=== PATIENT | female | born 1955 | race Caucasian/White ===

== ENCOUNTER 2020-02-11 14:27 | Inpatient (IN) | payer BC ==
[~2020-02-11] VITALS: Ht 167.6 cm; Wt 78.5 kg
[~2020-02-11 14:27] MED LIST: ATOR40TA52 PO
[2020-02-11] MEDS ORDERED: METHYLENE BLUE 0.5% 5MG/ML 10ml AMP IV ONE (14:37)
[2020-02-11] MEDS: BUPIVACAINE 0.25% INJ 50ML VIAL ONE ×2 (14:37→18:55)
[2020-02-11] MEDS: LIDOCAINE W/ EPINEPHRINE 1% 20ML VIAL ONE ×2 (14:37→18:55)
[2020-02-11] MEDS ORDERED: fentaNYL CITRATE 100 MCG/2 ML VL ONE ×2 (15:20→17:19)
[2020-02-11] MEDS ORDERED: HYDROmorphone HCL 2 MG/ML VL ONE (15:20)
[2020-02-11] MEDS ORDERED: ONDANSETRON HCL 4 MG/2 ML VIAL ONE (15:21)
[2020-02-11] MEDS ORDERED: ROCURONIUM 10MG/ML 10ML VIAL IV ONE (15:21)
[2020-02-11] MEDS ORDERED: KETOROLAC TROMETH 30 MG/ML 1ML VIAL ONE (15:21)
[2020-02-11] MEDS ORDERED: LIDOCAINE 2% (LOCAL ANESTH.) PF 5ml SDV ONE (15:21)
[2020-02-11] MEDS ORDERED: MIDAZOLAM HCL 1MG/1ML-2 ML VIAL ONE (15:21)
[2020-02-11] MEDS ORDERED: PROPOFOL 10 MG/ML 20 ML IV ONE (15:21)
[2020-02-11] MEDS ORDERED: GLYCOPYRROLATE 0.2 MG/ML 1ML VIAL ONE (15:21)
[2020-02-11] MEDS ORDERED: DexAMETHasone SOD PHOS 10MG/1ML VIAL INJ ONE (15:21)
[2020-02-11] MEDS ORDERED: ceFAZolin 1GM/50ML 100 ML IV ONE (15:43)
[2020-02-11] MEDS: SODIUM CHLORIDE 0.9% 1,000 ML IV SCH ×2 (16:25→23:37)
[2020-02-11] MEDS ORDERED: ceFAZolin 1GM/50ML 50 ML IV ONE (16:30)
[2020-02-11] MEDS ORDERED: MORPHINE SULF INJ 2 MG/ML SYRINGE 1ML IV PRN (16:30)
[2020-02-11] MEDS ORDERED: ACETAMINOPHEN 500 MG TAB PO PRN (16:30)
[2020-02-11] MEDS ORDERED: HYDROcodone-ACET 10/325MG TAB PO PRN (16:30)
[2020-02-11] MEDS ORDERED: NITROGLYCERIN 0.4 MG SL TAB SL PRN (16:30)
[2020-02-11] MEDS ORDERED: MORPHINE SULFATE 4 MG/ML SYR/VIAL IV PRN (16:30)
[2020-02-11] MEDS ORDERED: HYDROmorphone HCL 2 MG/ML VL IV PRN (19:15)
[2020-02-11] MEDS ORDERED: ONDANSETRON HCL 4 MG/2 ML VIAL IV PRN (19:15)
--- NOTE | 2020-02-11 20:30 | NUR ---
Telemetry admit from ER MARCELLUS FLORES admitted to Telemetry unit after SBAR received. Patient oriented to primary RN, unit, room, bed, and unit policies regarding patient care and visiting hours. Patient now on continuous telemetry monitoring, tele box #4 and telemetry reading on arrival to unit is Normal sinus rhythm. Patient weighed by bedscale and encouraged to call if they need something. All questions and concerns addressed, patient verbalized understanding. Bed locked in lowest position and bed rails up x2. Call light within reach.
[2020-02-11 21:44] VITALS: BP 106/66
[2020-02-11] MEDS: ONDANSETRON HCL 4 MG/2 ML VIAL IV PRN (22:45)
[2020-02-12 05:07] VITALS: BP 104/65
[2020-02-12 05:53] LABS: Basophils # (auto) 0 10 ^3/uL (0-0.2); Basophils % (auto) 0.1 % (0.0-2.0); Eosinophils # (auto) 0 10 ^3/uL (0-0.8); Hematocrit 36.5 % (36.0-46.0); Hemoglobin 12.4 g/dL (12.2-16.2); Lymphocytes # (auto) 0.6 10 ^3/uL (0.4-5.4); Lymphocytes % (auto) 5.7 % (10.0-50.0); Mean Corpuscular Volume 94.3 fL (80.0-100.0); Monocytes # (auto) 0.3 10 ^3/uL (0-1.3); Monocytes % (auto) 2.5 % (0.0-12.0); Neutrophils # (auto) 10.2 10 ^3/uL (1.6-8.6); Neutrophils % (auto) 91.7 % (37.0-80.0); Platelet Count (auto) 194 10^3/uL (140-450); Red Blood Cells 3.86 10^6/uL (4.0-5.20); Red Cell Distribution Width 12.8 % (11.8-14.3); White Blood Cell 11.1 10^3/uL (4.4-10.8)
[2020-02-12] MEDS: ONDANSETRON HCL 4 MG/2 ML VIAL IV PRN (07:05)
--- NOTE | 2020-02-12 07:15 | NUR ---
Dr. Coker at bedside
[2020-02-12 08:00] VITALS: BP 113/78
[2020-02-12] MEDS: SODIUM CHLORIDE 0.9% 1,000 ML IV SCH (09:13)
[2020-02-12 12:00] VITALS: BP 105/56
--- NOTE | 2020-02-12 12:44 | NUR ---
Barrera D/C Removed patient barrera catheter. Patient tolerated well with no complaints. Educated patient on to let me know when she has her first void after the removal of the catheter. She verbalized understanding. Emptied 400 ml of clear yellow urine from catheter bag.
[2020-02-12 13:59] VITALS: BP 105/56
--- NOTE | 2020-02-12 14:40 | NUR ---
Patient ambulated to toilet and voided yellow urine post [place] catheter removal. Patient states no difficulty urinating.
--- NOTE | 2020-02-12 16:24 | NUR ---
Discharge instructions given as ordered. Encourage to follow up with Primary care provider and with Dr. Coker as instructed. All questions and concerns addressed. Patient verbalized understanding. Medication reconciliation form completed and copy given to patient. IV removed with catheter intact, pressure dressing applied. Telemetry unit returned to ICU. Patient taken to vehicle via wheelchair with all personal belongings, accompanied by staff and family member ( Ranjit. No distress noted at time of departure.
== END 2020-02-12 16:22 | disposition home or self-care (01) | DRG 743 ==
LOC: OVERFLOW 14:27 → EDSTATUS 15:45 → TELE-EAST 20:31
PROVIDERS: ADMIT Obstetrics & Gynecology; ATTEND Obstetrics & Gynecology
PROC: 0UT74ZZ Resection of Bilateral Fallopian Tubes, Percutaneous Endoscopic Approach (ICD-10-PCS; 2020-02-11)
PROC: 0UNF4ZZ Release Cul-de-sac, Percutaneous Endoscopic Approach (ICD-10-PCS; 2020-02-11)
PROC: 8E0W4CZ Robotic Assisted Procedure of Trunk Region, Percutaneous Endoscopic Approach (ICD-10-PCS; 2020-02-11)
PROC: 0UT94ZL Resection of Uterus, Supracervical, Percutaneous Endoscopic Approach (ICD-10-PCS; principal; 2020-02-11 16:30)
DX: N73.6 Female pelvic peritoneal adhesions (postinfective) (principal); Z90.711 Acquired absence of uterus with remaining cervical stump
CPT/HCPCS: 36415; 85025; 86850; 86900; 86901; C1765; G0378; J0690; J1100; J1885; J2001; J2250; J2405; J2704; J3490